=== PATIENT | female | born 1965 | race Caucasian/White ===

== ENCOUNTER 2024-07-19 12:25 | Emergency (ER) | payer BC, OTHER ==
[~2024-07-19] VITALS: Ht 157.5 cm; Wt 67.7 kg
[2024-07-19] MEDS ORDERED: ONDA-84 PO (13:16)
[2024-07-19] MEDS ORDERED: TIZA2CAP PO (13:16)
[2024-07-19] MEDS ORDERED: XANA0.25 PO (13:16)
[2024-07-19] MEDS ORDERED: MORP15TA2 PO (13:16)
[2024-07-19 14:38] LABS: BASO % 0.4 % (0.0-1.0); EOS # 0.1 10^3/uL (0.0-0.5); EOS % 1.1 % (0.0-3.0); HEMATOCRIT 37.4 % (36.0-47.0); HEMOGLOBIN 12.9 g/dl (12.0-15.5); LYMPH # 0.8 10^3/uL (1.5-5.0); LYMPH % 10.8 % (24.0-44.0); MEAN CORPUSCULAR HEMOGLOBIN 29.4 pg (27.0-33.0); MEAN CORPUSCULAR HGB CONC 34.5 g/dl (32.0-36.5); MEAN CORPUSCULAR VOLUME 85.2 fl (80.0-96.0); MONO # 0.2 10^3/uL (0.0-0.8); MONO % 3.1 % (2.0-8.0); NEUTROPHILS # 6.2 10^3/uL (1.5-8.5); NEUTROPHILS % 84.5 % (36.0-66.0); PLATELET COUNT, AUTOMATED 192 10^3/uL (150-450); RED BLOOD COUNT 4.39 10^6/uL (4.00-5.40); WHITE BLOOD COUNT 7.4 10^3/uL (4.0-10.0)
[2024-07-19 14:58] VITALS: BP 176/81; TEMP 99.1; O2SAT 98
[2024-07-19 15:05] LABS: BLOOD UREA NITROGEN 9 MG/DL (9-23); CALCIUM LEVEL 9.5 MG/DL (8.5-10.1); CARBON DIOXIDE LEVEL 27 MMOL/L (20-31); CHLORIDE LEVEL 104 MMOL/L (98-107); CREATININE FOR GFR 0.81 MG/DL (0.55-1.30); GLOMERULAR FILTRATION RATE > 60.0 (>51); GLUCOSE, FASTING 106 MG/DL (60-100); POTASSIUM SERUM 4.4 MMOL/L (3.5-5.1); SODIUM LEVEL 140 MMOL/L (136-145)
[2024-07-19 16:19] LABS: ERYTHROCYTE SEDIMENTATION RATE 23 mm/hr (0-30)
[2024-07-19] MEDS: predniSONE 20 MG TAB PO ONE (16:34)
[2024-07-19] MEDS: CLINDAMYCIN 150MG CAPSULE PO ONE (16:34)
[2024-07-19] MEDS ORDERED: CLIN-250 PO (16:50)
[2024-07-19] MEDS ORDERED: PRED20TA PO (16:50)
== END 2024-07-19 17:20 | disposition home or self-care (01) ==
LOC: M ED 12:25
DX: L20.89 Other atopic dermatitis (principal); Z88.0 Allergy status to penicillin; Z88.2 Allergy status to sulfonamides; Z79.2 Long term (current) use of antibiotics; Z79.52 Long term (current) use of systemic steroids; Z79.899 Other long term (current) drug therapy
CPT/HCPCS: 36415; 80048; 85025; 85652; 86140; 99283; J7512